=== PATIENT | female | born 1940 | race Caucasian/White ===

== ENCOUNTER 2019-11-12 15:00 | Outpatient (CLI) | payer MEDICARE, OTHER, SELFPAY ==
[2019-11-12 16:27] LABS: Blood Urea Nitrogen 22 mg/dL (7-17); Calcium 9.8 mg/dL (8.4-10.2); Carbon Dioxide 29 mmol/L (22-30); Chloride 100 mmol/L (98-107); Estimated Glomerular Filt Rate 48; Glucose 126 mg/dL (65-105); Sodium 138 mmol/L (137-145)
== END 2019-11-12 15:01 | disposition home or self-care (01) ==
LOC: ANHSURGERY 15:07
PROVIDERS: Anesthesiology; PCP Internal Medicine; Visit Provider Urology
DX: N32.81 Overactive bladder (principal); N28.9 Disorder of kidney and ureter, unspecified
CPT/HCPCS: 36415; 80048; 87077; 87086; 87088; 87186

== ENCOUNTER 2019-11-19 01:31 | Day surgery (SDC) | payer MEDICARE, OTHER, SELFPAY ==
[2019-11-10 14:36] VITALS: BMI 34.4
[2019-11-19] VITALS (9 sets, daily range): BP systolic 122–170; BP diastolic 51–87; PULSE 69–106; RESP 10–20; TEMP 36.1–36.4; O2SAT 99–100
--- NOTE | ~2019-11-19 | XR_ITS ---
EXAMINATION: XR fl neurostim insert<1hr DATE: 11/19/2019 09:50 INDICATION: Overactive bladder. Urge incontinence. TECHNIQUE: 2 intraoperative fluoroscopic views of the pelvis were obtained. I was not present. Fluoro scopy exposure time was 222 seconds. COMPARISON: None. FINDINGS: There is an electrode in the right S3 neural foramen. IMPRESSION: 1. Electrode in the right S3 neural foramen. Reviewed, dictated and finalized at location A. R ERECTOR
--- NOTE | 2019-11-19 07:25 | WPDHPUPDATE1 ---
History and Physical Update Update Date/Time: 11/19/19 07:25 History and Physical has been reviewed, including an updated exam of the patient. There are NO changes in the patient's condition. Risks, benefits, and alternatives have been discussed and questions answered. Patient agrees to proceed with procedure.
[2019-11-19] MEDS: LACTATED RINGERS 1,000 ML 30 ML IV CONT ×2 (07:55→10:35)
--- NOTE | 2019-11-19 08:05 | WPDANESEPPF ---
Anes - Initial Pre Proc Eval Procedure: Operation Date: 11/19/19 09:15 Proposed Procedures p Interstim Implant, Phase One And Two - Andrea Peters MD Date/Time: 11/19/19 08:05 Surgeon: Andrea Peters MD Pre Op Diagnosis: Overactive Bladder/ Urge Incontinence Patient Data Age: 79 Gender: F Height: 1.63 m Weight: 90.9 kg Allergies Allergy/AdvReac Type Severity Reaction Status Date / Time ciprofloxacin [From Cipro] AdvReac Unknown Verified 11/10/19 14:24 codeine AdvReac Depression Verified 11/10/19 14:26 metoprolol AdvReac Cough Verified 11/10/19 14:27 niacin AdvReac Itching Verified 11/10/19 14:26 Sulfa (Sulfonamide AdvReac Other Verified 11/10/19 14:27 Antibiotics) Home Medications Medication Instructions Recorded Confirmed Type amlodipine [Norvasc] 5 mg PO HS 11/10/19 11/10/19 History aspirin 81 mg PO HS 11/10/19 11/10/19 History biotin 10,000 mcg PO HS 11/10/19 11/10/19 History cholecalciferol (vitamin D3) 3,000 unit PO HS 11/10/19 11/10/19 History cranberry 400 mg PO HS 11/10/19 11/10/19 History levothyroxine 100 mcg PO DAILY 11/10/19 11/10/19 History multivitamin 1 tablet PO HS 11/10/19 11/10/19 History nystatin-triamcinolone 1 applic TOPICAL BID 11/10/19 11/10/19 History omega 4-qlk-brg-fish oil [Fish Oil] 1 cap PO HS 11/10/19 11/10/19 History pantoprazole 40 mg PO HS 11/10/19 11/10/19 History potassium chloride 10 meq PO HS 11/10/19 11/10/19 History red yeast rice 600 mg PO HS 11/10/19 11/10/19 History rosuvastatin [Crestor] 20 mg PO HS 11/10/19 11/10/19 History vitamin E 1,000 unit PO HS 11/10/19 11/10/19 History Patient hx anesthesia problems: none Family hx anesthesia problems: none PMFSH Past Medical History Medical History (Updated 11/18/19 @ 08:38 by Bo Fisher DO) Depression Diabetes type 2, controlled GERD (gastroesophageal reflux disease) Hyperlipidemia Hypertension Hypothyroidism Pacemaker Surgical History Surgical History (Updated 11/19/19 @ 08:05 by Bo Fisher DO) History of cholecystectomy History of heart valve replacement aortic and mitral valve replacement History of hysterectomy Hx of CABG last one in 11/2018 Anes - Eval Final PreProcedure Day of Procedure 11/19/19 08:05 Patient weight: obese Heart: regular rate and rhythm Lungs: clear to auscultation and normal air movement Airway: Mallampati scale class II Neurological: alert and oriented Last oral intake: >/= 8 hours ASA classification: IV Emergent: no Anesthetic plan: proceed Anesthesia type and monitoring: general ETT and standard monitoring Informed Consent: The patient's anesthetic plan and its attendant risks and benefits were discussed with the patient/family/POA. Questions were solicited and answers provided to the satisfaction of the patient/family/POA.
[2019-11-19] MEDS: FAMOTIDINE 20 MG/2 ML VIAL IV PUSH (08:30)
[2019-11-19] MEDS: ceFAZolin 2 GM/D5W 50 ML 2 GM/50 ML BAG IVPB (08:56)
[2019-11-19] MEDS: BUPIVACAINE/EPINEPHRINE 0.25% 50 ML VIAL INFILTRATE (09:37)
--- NOTE | 2019-11-19 10:07 | P.OP_ITS ---
Procedure Note - Detailed Date of procedure: 11/19/19 Pre-op diagnosis: Overactive Bladder/ Urge Incontinence Post-op diagnosis: same Procedure performed: Placement of sacral lead And fluoroscopic guidance of needle placement Complex neurostimulator programming impedance check placement of implantable pulse generator Description of procedure: This is a 1 is at a successful trial of sacral nerve stimulation. She is here for permanent device. She understands risks of bleeding, infection, lack of efficacy, need for revision battery change. She agrees to proceed. She was correctly identified informed consent was obtained. She is brought in the operating room. She was given mac anesthesia. She was placed in a prone position. Lower back and buttock were prepped and draped in a sterile fashion. I located my sacral landmarks in the AP and lateral orientation. I anesthetized the skin. I entered the S3 foramen on the right and left. I monitored the needle fluoroscopy. I stimulated the needle and got appropriate responses on a ll right S3 placement. I made a skin abdirizak. I placed a stylet and the lead introducer sheath. I then placed and deployed male lead again under fluoroscopy. I again stimulated bleeding had appropriate responses. I marked out the site of the pulse generator. I made a incision after anesthetizing the skin. I created a subcutaneous pocket. I tunneled the lead towards this pocket. I made appropriate connections to the battery in the lead. The battery is programmed. It was placed in the pocket. Impedances were checked and found to be normal. I irrigated out all wounds. I assured hemostasis. I closed the subcu with 2 Vicryl. I closed the skin with Damaris Vicryl. Glue was applied. Implants: InterStim system Anesthesia: MAC and local Surgeon: Andrea Peters MD Estimated blood loss (mL): 10 Drains: No Packing: No Pathology: none sent Complications: No immediate complications Condition: stable Disposition: PACU
--- NOTE | 2019-11-19 10:46 | SUR.PHASEI ---
1020: Patient denies being diabetic so RN didn't check BG in PACU.
== END 2019-11-19 12:10 | disposition home or self-care (01) ==
PROVIDERS: PCP Internal Medicine; Visit Provider Urology
PROC: (CPT 64590; principal; 2019-11-19 09:15)
DX: N32.81 Overactive bladder (principal); N39.41 Urge incontinence; I10 Essential (primary) hypertension; E78.5 Hyperlipidemia, unspecified; E11.9 Type 2 diabetes mellitus without complications; E03.9 Hypothyroidism, unspecified; K21.9 Gastro-esophageal reflux disease without esophagitis; F32.9 Major depressive disorder, single episode, unspecified; Z95.0 Presence of cardiac pacemaker; Z79.82 Long term (current) use of aspirin; Z95.4 Presence of other heart-valve replacement; Z95.1 Presence of aortocoronary bypass graft; E66.9 Obesity, unspecified; Z68.34 Body mass index [BMI] 34.0-34.9, adult
CPT/HCPCS: 64590; C1767; C1778; C1787; C1894; J0330; J0690; J2704; J3010; J7120

== ENCOUNTER 2022-09-06 00:49 | Day surgery (SDC) | payer MEDICARE, OTHER, SELFPAY ==
[2022-08-28 15:53] VITALS: BMI 33.2
--- NOTE | 2022-08-28 16:15 | PC.NURSE ---
Report to the Outpatient Waiting Room, entrance under the green pavilion located off [facility], at time __8:15am on date _09/06/22 . Planned Procedure Time: _10:15AM . Time changes happen often and if your time is changed the preop area will call you the afternoon before. - You and your visitor will be asked to self-screen and do not enter if you have any COVID symptoms. - Only one visitor is requested with a max of two and NO children visitors are allowed at this time. - The patient visitor may be requested to leave or wait in car when not with patient due to distancing restrictions. - A mask is optional within the hospital. Patients may have clear liquids (water, carbonated beverages, clear teas, apple juice) until 3 hours prior to surgery with a maximum of 20 ounces. - No food from midnight until time of surgery Take the following medications with a SIP of water the morning of surgery: ___LEVOTHYROXINE Medications to discontinue per physician ___HOLD ASPIRIN PER MD ORDER, HOLD ALL VITAMINS/SUPPLEMENTS 3 DAYS PRE-OP- LAST DOSE 09/02/22 Please no make-up, nail croatian, hairspray, perfume, deodorant, or body powder the day of surgery. No jewelry (including any body piercings) or valuables the day of surgery, leave them at home. Please take a shower or bath the night before, or the morning of, surgery with an antibacterial soap. Wear comfortable, loose fitting clothing. Children are encouraged to wear pajamas. - Jewelry must be removed prior to entering the operating room. Rings and piercings that are not removed may be cut off. - The hospital will not accept responsibility for valuables. - Please leave all valuables, including medications, at home the day of surgery. If you are going home after surgery, a licensed rickshaw driver must drive you home. - NO public transportation without another adult if you receive anesthesia. - We recommend that an adult stay with you for 24 hours following discharge. - We also recommend that you do not drive, make important decision, drink alcoholic beverages, or take any drugs that were not prescribed by your health care provider for at least 24 hours after your discharge time. Follow any additional instructions given to you from your surgeon. If you or anyone in your household have experienced Covid symptoms in the past week, please notify your surgeon or the nurse liaison at the phone number below for possible testing. Telephone instructions given to __PATIENT and asked if any additional questions and then verbalized understanding. Patient advised to call surgeon office or pre surgery nurse liaison [phone] if any additional questions.
--- NOTE | 2022-08-30 13:06 | PM.IMHP ---
H&P: HPI History of Present Illness Date/Time: 08/30/22 13:06 Chief Complaint: desires device removal Narrative: 82-year-old female InterStim device in place. She desires it to be removed for lack of efficacy and discomfort Review of Systems Review of Systems: All systems reviewed & are unremarkable except as noted in HPI and below PMFSH Past Medical History Medical History Depression Diabetes type 2, controlled GERD (gastroesophageal reflux disease) Hyperlipidemia Hypertension Hypothyroidism Pacemaker Surgical History Surgical History History of cholecystectomy History of heart valve replacement aortic and mitral valve replacement History of hysterectomy Hx of CABG last one in 11/2018 Social History Social History Smoking packs per day: 1.5 Smoking cigarettes per day: 30.0 Years smoked: 21 Smoking pack-years: 31.50 Smoking status: Former smoker Tobacco type: cigarettes Smoking end date: 04/05/80 Alcohol intake: current Drinks per week: 7 Substance use: never Living arrangements: with family Additional living arrangements comments: HUSB Spiritual care concerns: No Meds Home Medications and Allergies Home Medications Medication Instructions Recorded Confirmed Type amlodipine 5 mg tablet (Norvasc) 5 mg PO HS 11/10/19 08/28/22 History levothyroxine 100 mcg tablet 100 mcg PO DAILY 11/10/19 08/28/22 History nystatin-triamcinolone 100,000 1 applic topical BID PRN Rash 11/10/19 08/28/22 History unit/g-0.1 % topical cream rosuvastatin 20 mg tablet (Crestor) 20 mg PO HS 11/10/19 08/28/22 History Cognium 1 tab-cap PO DAILY 08/28/22 08/28/22 History aspirin 325 mg tablet,delayed 325 mg PO DAILY 08/28/22 08/28/22 History release pantoprazole 40 mg tablet,delayed 40 mg PO BID 08/28/22 08/28/22 History release Allergies Allergy/AdvReac Type Severity Reaction Status Date / Time codeine AdvReac Depression Verified 08/28/22 15:41 metoprolol AdvReac Cough Verified 08/28/22 15:41 niacin AdvReac Itching Verified 08/28/22 15:41 Sulfa (Sulfonamide AdvReac DIZZINESS, Verified 08/28/22 15:41 Antibiotics) FAINT Exam Narrative: no acute distress normal breathing alert orient x3 Assessment and Plan Assessment and plan (1) Unspecified complication of internal prosthetic device, implant and graft, initial encounter: Code(s): T85.9XXA - Unspecified complication of internal prosthetic device, implant and graft, initial encounter Status: Acute Assessment and Plan: desires removal of InterStim device. Understands risks of bleeding, infection, incomplete issue device removal. agrees to proceed. you may pursue an alternative overactive bladder treatment in the future
--- NOTE | ~2022-09-06 | XR_ITS ---
XR fluoroscopy no charge Clinical information: Removal of stimulator lead TECHNIQUE: Fluoroscopy used during removal of neurostimulator lead performed by [Andrea lopez MD] on 09/06/2022. 7 seconds of fluoroscopy with a single images captured. ] FINDINGS: Correlate with procedure note. IMPRESSION: Fluoroscopy used during removal of neurostimulator lead.. Reviewed, dictated and finalized at location A. BUILDER HELPER
--- NOTE | 2022-09-06 07:33 | WPDHPUPDATE1 ---
History and Physical Update Update Date/Time: 09/06/22 07:33 History and Physical has been reviewed, including an updated exam of the patient. There are NO changes in the patient's condition. Risks, benefits, and alternatives have been discussed and questions answered. Patient agrees to proceed with procedure.
[2022-09-06 08:35] VITALS: BMI 32.6
[2022-09-06 08:45] VITALS: BP 148/63; PULSE 93; RESP 16; TEMP 37.3; O2SAT 100
--- NOTE | 2022-09-06 08:45 | SUR.PREOP ---
0845- Dr. Peters to pre-op room 7 to assess patient's shingles. Shingles assessed on patient's mid to upper right back to under right breast. Per Dr. Peters with patient's shingles having been active for a month's time and in healing phase without openings or near operative area that he is OK to proceed with surgery.
--- NOTE | 2022-09-06 08:58 | WPDANESEPPF ---
Anes - Initial Pre Proc Eval Procedure: Operation Date: 09/06/22 10:15 Proposed Procedures p Removal of Neurostimulator - Andrea Peters MD Date/Time: 09/06/22 08:58 Surgeon: Andrea Peters MD Pre Op Diagnosis: complication of neurostimulator Patient Data Age: 82 Gender: F Height: 1.6 m Weight: 83.6 kg Allergies Allergy/AdvReac Type Severity Reaction Status Date / Time codeine AdvReac Depression Verified 09/06/22 08:42 hydralazine AdvReac Dizziness Verified 09/06/22 08:42 methylprednisolone AdvReac Other Verified 09/06/22 08:42 metoprolol AdvReac Cough Verified 09/06/22 08:42 niacin AdvReac Itching Verified 09/06/22 08:42 Sulfa (Sulfonamide AdvReac DIZZINESS, Verified 09/06/22 08:42 Antibiotics) FAINT tramadol AdvReac Dizziness Verified 09/06/22 08:42 Home Medications Medication Instructions Recorded Confirmed Type amlodipine 5 mg tablet (Norvasc) 5 mg PO HS 11/10/19 08/28/22 History levothyroxine 100 mcg tablet 100 mcg PO DAILY 11/10/19 09/06/22 History nystatin-triamcinolone 100,000 1 applic topical BID PRN Rash 11/10/19 08/28/22 History unit/g-0.1 % topical cream rosuvastatin 20 mg tablet (Crestor) 20 mg PO HS 11/10/19 08/28/22 History Cognium 1 tab-cap PO DAILY 08/28/22 08/28/22 History aspirin 325 mg tablet,delayed 325 mg PO DAILY 08/28/22 09/06/22 History release pantoprazole 40 mg tablet,delayed 40 mg PO BID 08/28/22 08/28/22 History release Patient hx anesthesia problems: post op nausea/vomiting Family hx anesthesia problems: none Results Review: All pre-operative results and documents have been reviewed as part of the pre-operative evaluation. [facility] Past Medical History Medical History Depression Diabetes type 2, controlled GERD (gastroesophageal reflux disease) Hyperlipidemia Hypertension Hypothyroidism Pacemaker Surgical History Surgical History History of cholecystectomy History of heart valve replacement aortic and mitral valve replacement History of hysterectomy Hx of CABG last one in 11/2018 Social History Social History Smoking packs per day: 1.5 Smoking cigarettes per day: 30.0 Years smoked: 21 Smoking pack-years: 31.50 Smoking status: Former smoker Tobacco type: cigarettes Smoking end date: 04/05/80 Alcohol intake: current Drinks per week: 7 Substance use: never Living arrangements: with family Additional living arrangements comments: HUSB Spiritual care concerns: No Anes - Eval Final PreProcedure Day of Procedure 09/06/22 08:58 Patient weight: obese Heart: regular rate and rhythm Lungs: decreased breath sounds Airway: Mallampati scale class II Neurological: other (alert) Last oral intake: >/= 8 hours ASA classification: IV Emergent: no Anesthetic plan: proceed Anesthesia type and monitoring: general GIVS and standard monitoring Results Review: All pre-operative results and documents have been reviewed as part of the pre-operative evaluation. Informed Consent: The patient's anesthetic plan and its attendant risks and benefits were discussed with the patient/family/POA. Questions were solicited and answers provided to the satisfaction of the patient/family/POA.
[2022-09-06] MEDS: LACTATED RINGERS 1,000 ML 30 ML IV CONT (09:00)
[2022-09-06] MEDS: ceFAZolin 2 GM/D5W 50 ML 2 GM/50 ML BAG IVPB (09:13)
[2022-09-06] MEDS: BUPIVACAINE/EPINEPHRINE 0.25% 10 ML VIAL 20 ML INFILTRATE (09:29)
[2022-09-06 09:46] VITALS: BP 119/48; PULSE 71; RESP 12; O2SAT 100
--- NOTE | 2022-09-06 10:02 | W.PM.PROC2 ---
Procedure Note - Detailed Date of Procedure 09/06/22 Pre-op Diagnosis complication of neurostimulator Post-op Diagnosis Same Procedure Performed Removal of neurostimulator battery and lead Surgeon Andrea Peters MD Anesthesia MAC and Local Findings Uncomplicated InterStim device removal Description of Procedure She was correctly identified. Informed consent obtained. She from the operating. She was MAC anesthesia. She was placed in a prone position. She was prepped and draped in a sterile fashion. Time-out performed. I anesthetized the skin over the pulse generator. I anesthetized the skin and removed the pulse generator. I then anesthetized the skin over the sacral lead. I identified under fluoroscopy. I located lead and removed its entirety. I removed the capsule from around the battery. I irrigated all wounds. Ensured hemostasis I closed the subcutaneous tissues with 2-0 Vicryl. Skin with 4-0 Vicryl. Glue was applied. She was awakened transferred condition Estimated Blood Loss 1 Complications No immediate complications Condition Stable Disposition PACU
[2022-09-06 10:15] VITALS: BP 121/61; PULSE 70; RESP 20
[2022-09-06 10:45] VITALS: BP 120/68; PULSE 72; RESP 20
== END 2022-09-06 10:50 | disposition home or self-care (01) ==
PROVIDERS: PCP Family Medicine; Visit Provider Urology
PROC: (CPT 64585; principal; 2022-09-06 10:15)
DX: T85.890A Other specified complication of nervous system prosthetic devices, implants and grafts, initial encounter (principal); Y83.8 Other surgical procedures as the cause of abnormal reaction of the patient, or of later complication, without mention of misadventure at the time of the procedure; I10 Essential (primary) hypertension; E78.5 Hyperlipidemia, unspecified; E03.9 Hypothyroidism, unspecified; K21.9 Gastro-esophageal reflux disease without esophagitis; E11.9 Type 2 diabetes mellitus without complications; Z95.0 Presence of cardiac pacemaker; Z95.4 Presence of other heart-valve replacement; Z95.1 Presence of aortocoronary bypass graft; Z87.891 Personal history of nicotine dependence; Z79.82 Long term (current) use of aspirin; E66.9 Obesity, unspecified; Z68.32 Body mass index [BMI] 32.0-32.9, adult
CPT/HCPCS: 64585; 64595; 99199; J0690; J2704; J3010; J7120